=== PATIENT | female | born 1995 | race Native Hawaiian/Other Pacific Islander ===

== ENCOUNTER 2021-03-26 13:06 | Emergency (ER) | payer OTHER ==
[2021-04-08 07:08] LABS: POTASSIUM 3.5 mmol/L (3.6-5.2)
[2021-04-08 07:09] LABS: PLATELET COUNT 244 K/uL (152-353)
== END 2021-03-26 13:08 | disposition short-term general hospital (02) ==
LOC: ED 13:06
PROVIDERS: Emergency Medicine
DX: R45.851 Suicidal ideations (principal); R44.0 Auditory hallucinations; F19.10 Other psychoactive substance abuse, uncomplicated; Z11.52 Encounter for screening for COVID-19
CPT/HCPCS: 36415; 80053; 80307; 80320; 80329; 81000; 81025; 85027; 87635; 93005; 99285; U0003

== ENCOUNTER 2021-07-29 07:56 | Emergency (ER) | payer OTHER ==
[~2021-07-29] VITALS: Ht 162.6 cm; Wt 61.2 kg
[2021-07-29 08:08] VITALS: TEMP 97.7
[2021-07-29 08:57] VITALS: BP 110/70
== END 2021-07-29 09:00 | disposition home or self-care (01) ==
LOC: ED 07:56
DX: K02.9 Dental caries, unspecified (principal)
CPT/HCPCS: 96372; 99282; J1885

== ENCOUNTER 2021-11-12 11:46 | Emergency (ER) | payer OTHER ==
[~2021-11-12] VITALS: Ht 162.6 cm; Wt 61.2 kg
[2021-11-12 11:48] VITALS: TEMP 97.2
[2021-11-12 12:43] VITALS: BP 122/78
== END 2021-11-12 12:44 | disposition home or self-care (01) ==
LOC: ED 11:46
DX: Z32.01 Encounter for pregnancy test, result positive (principal)
CPT/HCPCS: 81000; 81025; 99283

== ENCOUNTER 2022-03-17 17:37 | Emergency (ER) | payer OTHER ==
[~2022-03-17] VITALS: Ht 162.6 cm; Wt 56.2 kg
[2022-03-17 20:15] VITALS: BP 110/62; TEMP 98.2
== END 2022-03-17 20:15 | disposition home or self-care (01) ==
LOC: ED 17:37
DX: M54.89 Other dorsalgia (principal); Z3A.24 24 weeks gestation of pregnancy; M25.551 Pain in right hip
CPT/HCPCS: 81000; 99282